=== PATIENT | male | born 2000 | race Two or more races ===

== ENCOUNTER 2024-07-30 15:54 | Emergency (ER) | payer BC ==
[~2024-07-30] VITALS: Ht 177.8 cm; Wt 99.8 kg
[2024-07-30] MEDS ORDERED: AMLODIPINE-OLM1 EAC3 (16:21)
[2024-07-30] MEDS ORDERED: LIDOCAINE HCL 1% 10ML VIAL PERCUT ONE (17:00)
[2024-07-30] MEDS ORDERED: KETOROLAC TROMETHAMINE 60 MG VIAL IM ONE (17:00)
[2024-07-30] MEDS ORDERED: CEFTRIAXONE SODIUM 1,000 MG VIAL IM ONE (17:00)
[2024-07-30] MEDS ORDERED: PEPCID AC20 MG PO (17:30)
[2024-07-30] MEDS ORDERED: CEPHALEXIN750 MG PO (17:30)
== END 2024-07-30 17:39 | disposition home or self-care (01) ==
LOC: ER 15:55
DX: S01.81XA Laceration without foreign body of other part of head, initial encounter (principal); W18.30XA Fall on same level, unspecified, initial encounter; Y93.9 Activity, unspecified; Y92.9 Unspecified place or not applicable; Y99.9 Unspecified external cause status